=== PATIENT | male | born 1980 | race Caucasian/White ===

== ENCOUNTER → 2021-07-29 07:54 | Outpatient (CLI) | payer OTHER, SELFPAY ==
--- NOTE | 2021-07-29 07:57 | DI.ECHO.S_ITS ---
[facility]---------+ [facility] +---------+ : : [address] [place] : : : : [id number] : : : : Phone: [phone]+ Echocardiogram Report + + :Name: PINO CAMPBELL Study Date: 07/29/2021 Height: 67 in : :[facility] ReadingLocation: Weight: 200 lb : : Gender: Male BSA: 2.0 m2 : :: 1980 Age: 40 yrs BP: 105/65 mmHg: :Reason For Study: ABNL EKG : : Performed By: Gabriel Howard : :Referring: PARKER DUNN : + + Interpretation Summary The ejection fraction is estimated to be 55-60%. There is no significant valvular heart disease. Procedure: A two-dimensional transthoracic echocardiogram with color flow and Doppler was performed. The study quality was technically good. There is no prior echocardiogram noted for this patient. The patient was in normal sinus rhythm during the exam. Left Ventricle: The left ventricle is normal in size. There is normal left ventricular wall thickness. The ejection fraction is estimated to be 55-60%. There are no focal wall motion abnormalities. Diastolic parameters suggest probable normal left ventricular diastolic function and normal filling pressures. Right Ventricle: The right ventricle is normal in size and function. Atria: Both atria are normal in size. There is no Doppler evidence for an atrial septal defect. Mitral Valve: The mitral valve is normal in structure and function. There is trace mitral regurgitation. Aortic Valve: The aortic valve is trileaflet. The aortic valve opens well. No aortic regurgitation is present. Tricuspid Valve: The tricuspid valve is normal in structure and function. There is trace tricuspid regurgitation. The right ventricular systolic pressure is estimated to be at least 21 mmHg based on an estimated right atrial pressure of 3 mm Hg. Pulmonic Valve: The pulmonic valve is normal in structure and function. There is trace pulmonic regurgitation. Great Vessels: The aortic root is normal size. The dimensions of the ascending aorta are normal. The pulmonary artery is normal size. The IVC is of normal diameter and collapses greater than 50% with a sniff. This suggests a low right atrial pressure of 3 mm Hg. Pericardium/ Pleura There is no pericardial effusion. There is no pleural effusion. MMode/2D Measurements & Calculations LVIDd: 4.5 cm LVOT diam: 2.1 cm LVIDs: 3.1 cm Ao root diam: 2.8 cm FS: 31.6 % asc Aorta Diam: 2.9 cm EPSS: 0.26 cm Ao Arch Diam (Prox Trans): 2.2 cm IVSd: 0.69 cm LVPWd: 0.83 cm LV craft. diameter/BSA (cm/m^2): 2.2 LV sys. diameter/BSA (cm/m^2): 1.5 LA dimension: 3.4 cm RA long axis: 4.3 cm LA A2 area: 18.7 cm2 RA area: 13.0 cm2 LA A4 area: 16.9 cm2 RA vol: 33.1 ml LA length (vol): 5.2 cm RA : 16.4 ml/m2 LA vol: 51.9 ml IVC diam: 1.4 cm LA vol index: 25.7 ml/m2 TAPSE: 1.7 cm Doppler Measurements & Calculations Ao V2 max: 149.2 cm/sec LVOT Max Teo: 108.2 cm/sec Ao V2 mean: 117.3 cm/sec LV V1 max P.7 mmHg Ao max P.9 mmHg LV V1 VTI: 24.3 cm Ao mean P.8 mmHg DENISE(I,D): 2.5 cm2 Ao V2 VTI: 32.6 cm DENISE(V,D): 2.4 cm2 sev ratio: 0.75 DENISE indexed to BSA (cm^2/m^2): 1.2 MV E max teo: 80.5 cm/sec TR max teo: 210.6 cm/sec MV A max teo: 59.2 cm/sec TR max P.7 mmHg MV E/A: 1.4 PA V2 max: 94.6 cm/sec Med Peak E' Teo: 9.4 cm/sec PA V2 mean: 73.1 cm/sec E/E' med: 8.6 PA mean P.3 mmHg Lat Peak E' Teo: 13.8 cm/sec PA pr(Accel): 22.5 mmHg E/E' lat: 5.9 E/e' average: 7.2 MV dec time: 0.18 sec SV(LVOT): 82.2 ml Reading Physician:03:27 PM
== END ==
DX: R94.31 Abnormal electrocardiogram [ECG] [EKG] (principal)
CPT/HCPCS: 93306

== ENCOUNTER 2021-10-24 16:45 | Outpatient (RCR) | payer OTHER, SELFPAY ==
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
--- NOTE | 2021-04-11 15:32 | PT-OP ANOTE ---
pt called in and cancelled appt d/t working overtime.
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
--- NOTE | 2021-06-23 16:28 | PT.OPPOC ---
Physical, Occupational & Speech Therapy At [facility] Current Diagnoses Other fracture of left lower leg, initial encounter for closed fracture (06/23/21) Encounter for other orthopedic aftercare (06/23/21) Visit Care Team Role Provider Type Zacarias Sierra MD Attending Provider Non-Staff Primary Care Provider Referring Provider Specialty: Orthopedic Surgery Address: [address] [place] [address], [id number] Email: Plan Of Care PT-OP-T Assessment and Plan Start: 04/04/21 11:43 Freq: Status: Active Protocol: Document 06/23/21 15:16 HH (Rec: 06/23/21 16:28 HH [id number]) Physical Therapy Assessment Goals balance Impairment unable to WB on LLE now Short Term Goal (STG) 06/23 goal met pt is able to complete SLS > 10s STG Duration 5 weeks Half-Way Goal (LTG) 06/23 pain increased after 10s pt will be able to complete SLS >20 s to improve his overall single leg stability LTG Duration 10 weeks gait Impairment pt is on walking boot and mobilize with knee scooter Short Term Goal (STG) 06/23 goal met, pt is able to walk without AD at this point. gait is close to WNL. pt will be able to amb with a cane/ LAD at home and community with pain no more than 3/10 STG Duration 5 weeks Relocation Director Goal (LTG) pt will show normalized gait without compensation and able to begin jogging without increase discomfort >3/10 LTG Duration 10 weeks FAAM Impairment pt scores 8 on FAAM Short Term Goal (STG) 06/23 pt scores 29 on FAAM pt will score >40 on FAAM to show improved ankle mobility, stability, strength and balance STG Duration 5 weeks Relocation Director Goal (LTG) pt will score >60 on FAAM to show improved ankle mobility, stability, strength and balance LTG Duration 10 weeks LEFS Impairment pt scores 16 on LEFS Short Term Goal (STG) 06/23 pt scores 22 on LEFS. pt will score >40 on LEFS to show improved mobility and strength STG Duration 5 weeks Half-Way Goal (LTG) pt will score >60 on LEFS to show improved mobility and strength LTG Duration 10 weeks Progress Towards Goals Progress Towards Goals Progressing Toward Goals Assessment Summary Assessment Reassessment today and Antoine shows improved ankle ROM and strength since his walking boot removed a month ago. He is able to perform bilateral heel raise and stand on one leg. His gait is also improving with better push off during preswing. However, His PF lacks of approx 20 degrees compared to right. Pt also has a new onset of L LBP and indicates lumbar radiculopathy . This possibly impede his rehab progress. 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 Physical Therapy Plan Frequency and Duration Frequency of Treatment 2x/Week Duration of Treatment 10 weeks Plan of Care Start Date 06/23/21 Plan of Care End Date 09/06/21 Therapeutic Interventions Therapeutic Interventions Aquatic Therapy,Balance Training,Gait Training,Home Exercise Program,Joint Mobilizations,Manual Therapy, Neuromuscular Re-education, Patient/Caregiver Education, Self-Care/Home Management,Soft Tissue Mobilization,Taping, Therapeutic Activities, Therapeutic Exercises Modalities Cold Pack/Ice Massage,Electric Stimulation,Hot Packs, Infrared Therapy,Ultrasound Next Visit Focus/Plan Next Note Type Treatment Note Next Visit Plan Assess SLS, star glides, toe off increasing stance time on LLE during gait. POC: Assess response to HEP review: gait training, AROM BAPS #4 and intrinic isometric in standing. Plan of Care Dates Plan of Care Start Date 06/23/21 Plan of Care End Date 09/06/21 Electronically Signed by: Juliane Roberts PT 06/23/21 3224 Please Sign and Return: I have reviewed this Plan of Care and certify that the skilled therapy services above are required to meet the patient?s needs. Physician Signature Date Printed Name and Credentials Clinical Instructor Signature Printed Name and Credentials
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
--- NOTE | 2021-09-07 11:25 | PT.OPPOC ---
Physical, Occupational & Speech Therapy At [facility] Current Diagnoses Other fracture of left lower leg, initial encounter for closed fracture (09/07/21) Encounter for other orthopedic aftercare (09/07/21) Visit Care Team Role Provider Type Zacarias Sierra MD Attending Provider Non-Staff Primary Care Provider Referring Provider Specialty: Orthopedic Surgery Address: [address] [place] [address], [id number] Email: Plan Of Care PT-OP-T Assessment and Plan Start: 04/04/21 11:43 Freq: Status: Active Protocol: Document 09/07/21 08:10 (Rec: 09/07/21 11:25 [id number]) Physical Therapy Assessment Goals balance Impairment unable to WB on LLE now Short Term Goal (STG) 06/23 goal met pt is able to complete SLS > 10s STG Duration 5 weeks Prison Goal (LTG) 06/23 pain increased after 10s 09/07 pt will be able to complete SLS >20 s to improve his overall single leg stability LTG Duration 10 weeks gait Impairment pt is on walking boot and mobilize with knee scooter Short Term Goal (STG) 06/23 goal met, pt is able to walk without AD at this point. gait is close to WNL. pt will be able to amb with a cane/ LAD at home and community with pain no more than 3/10 STG Duration 5 weeks Prison Goal (LTG) 09/07 pt's gait = WFL but with slight lateral foot whip during swing phase. He started doing mild pylometric but not full jogging yet. pt will show normalized gait without compensation and able to begin jogging without increase discomfort >3/10 LTG Duration 10 weeks FAAM Impairment pt scores 8 on FAAM Short Term Goal (STG) 06/23 pt scores 29 on FAAM pt will score >40 on FAAM to show improved ankle mobility, stability, strength and balance STG Duration 5 weeks Prison Goal (LTG) 09/07 pt scores 46 today. pt will score >60 on FAAM to show improved ankle mobility, stability, strength and balance LTG Duration 10 weeks LEFS Impairment pt scores 16 on LEFS Short Term Goal (STG) 06/23 pt scores 22 on LEFS. pt will score >40 on LEFS to show improved mobility and strength STG Duration 5 weeks Commissioning Editor Goal (LTG) 09/07 pt scores 46 since he is unable to participate recreational activities such as running yet. pt will score >60 on LEFS to show improved mobility and strength LTG Duration 10 weeks Assessment Summary Assessment Reassessment today. Pt overall shows close to WFL ankle ROM and strength in open chain position. He still has difficulty tolerating in prolonged WB positions/ high impact activities possible d/t bone healing perspective. Pt felt better after navicular joint mob during DF/WB . Physical Therapy Plan Frequency and Duration Frequency of Treatment 1-2x/wk Duration of Treatment 6 weeks Plan of Care Start Date 09/07/21 Plan of Care End Date 10/22/21 Therapeutic Interventions Therapeutic Interventions Aquatic Therapy,Balance Training,Gait Training,Home Exercise Program,Joint Mobilizations,Manual Therapy, Neuromuscular Re-education, Patient/Caregiver Education, Self-Care/Home Management,Soft Tissue Mobilization,Taping, Therapeutic Activities, Therapeutic Exercises Modalities Cold Pack/Ice Massage,Electric Stimulation,Hot Packs, Infrared Therapy,Ultrasound Next Visit Focus/Plan Next Note Type Treatment Note Next Visit Plan Assess SLS, star glides, toe off increasing stance time on LLE during gait. POC: Assess response to HEP review: gait training, AROM BAPS #4 and intrinic isometric in standing. Plan of Care Dates Plan of Care Start Date 09/07/21 Plan of Care End Date 10/22/21 Electronically Signed by: Juliane Roberts, PT 09/07/21 [id number] Please Sign and Return: I have reviewed this Plan of Care and certify that the skilled therapy services above are required to meet the patient?s needs. Physician Signature Date Printed Name and Credentials Clinical Instructor Signature Printed Name and Credentials
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
--- NOTE | 2021-10-17 16:59 | PT.OPPOC ---
Physical, Occupational & Speech Therapy At [facility] Current Diagnoses Other fracture of left lower leg, initial encounter for closed fracture (10/17/21) Encounter for other orthopedic aftercare (10/17/21) Visit Care Team Role Provider Type Zacarias Sierra MD Attending Provider Non-Staff Primary Care Provider Referring Provider Specialty: Orthopedic Surgery Address: [address] [place] [address], [id number] Email: Plan Of Care PT-OP-T Assessment and Plan Start: 04/04/21 11:43 Freq: Status: Active Protocol: Document 10/17/21 16:01 DCW (Rec: 10/17/21 16:58 DCW [id number]) Physical Therapy Assessment Goals balance Impairment unable to WB on LLE now Short Term Goal (STG) 06/23 goal met pt is able to complete SLS > 10s STG Duration Met Registered Nurses Goal (LTG) 09/07 pt will be able to complete SLS >20 s to improve his overall single leg stability LTG Duration Met gait Impairment pt is on walking boot and mobilize with knee scooter Short Term Goal (STG) pt will be able to amb with a cane/ LAD at home and community with pain no more than 3/10 STG Duration Met Registered Nurses Goal (LTG) 09/07 pt's gait = WFL but with slight lateral foot whip during swing phase. He started doing mild pylometric but not full jogging yet. pt will show normalized gait without compensation and able to begin jogging without increase discomfort >3/10 LTG Duration 12/15/21 FAAM Impairment pt scores 8 on FAAM Usp Goal (LTG) 09/07 pt scores 46 today. pt will score >60 on FAAM to show improved ankle mobility, stability, strength and balance LTG Duration 12/15/21 LEFS Impairment pt scores 16 on LEFS Impairment 09/07/21 pt scores 46 since he is unable to participate recreational activities such as running yet. Usp Goal (LTG) pt will score >60 on LEFS to show improved mobility and strength LTG Duration 12/15/21 Assessment Summary Assessment Pt continues to feel like he has plateaued, does demonstrate some improved ROM, but feels like he hits a hard stop limiting his dorsiflexion. Additionally, pt seems to be showing signs of posterior tib tendonitis along the posterior aspect of his medial malleolus. Discussed pt talking with base ortho surgeon about continued pain levels. Physical Therapy Plan Frequency and Duration Frequency of Treatment 1-2x/wk Duration of Treatment 2 months Plan of Care Start Date 10/17/21 Plan of Care End Date 12/15/21 Therapeutic Interventions Therapeutic Interventions Aquatic Therapy,Balance Training,Gait Training,Home Exercise Program,Joint Mobilizations,Manual Therapy, Neuromuscular Re-education, Patient/Caregiver Education, Self-Care/Home Management,Soft Tissue Mobilization,Taping, Therapeutic Activities, Therapeutic Exercises Modalities Cold Pack/Ice Massage,Electric Stimulation,Hot Packs, Infrared Therapy,Ultrasound Next Visit Focus/Plan Next Note Type Treatment Note Next Visit Plan cont start with bike then eliptical dynamic balance activities, pylometric if tolerated by monitoring WB tolerance. Plan of Care Dates Plan of Care Start Date 10/17/21 Plan of Care End Date 12/15/21 Electronically Signed by: Malcom Elmore, PT 10/17/21 1090 Please Sign and Return: I have reviewed this Plan of Care and certify that the skilled therapy services above are required to meet the patient?s needs. Physician Signature Date Printed Name and Credentials Clinical Instructor Signature Printed Name and Credentials
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
== END 2021-12-19 10:08 ==
LOC: PHYS 16:45
PROVIDERS: PCP Orthopaedic Surgery; Referring Provider Orthopaedic Surgery; Visit Provider Orthopaedic Surgery
DX: S82.892A Other fracture of left lower leg, initial encounter for closed fracture (principal); Z47.89 Encounter for other orthopedic aftercare
CPT/HCPCS: 95851; 97110; 97112; 97116; 97140; 97161; 97530; 97535

== ENCOUNTER → 2023-02-09 12:47 | Outpatient (CLI) | payer OTHER, SELFPAY ==
--- NOTE | 2023-02-09 | DI.MRI.S_ITS ---
PROCEDURE: MR ANKLE LT WO CON INDICATIONS: PAIN IN LEFT ANKLE TECHNIQUE: Noncontrast sagittal T1 spin echo and T2 fast spin echo with fat saturation, axial proton density fast spin echo and T2 fast spin echo with fat saturation, coronal T1 spin echo and T2 fast spin echo with fat saturation through the ankle/hindfoot. COMPARISON: None. FINDINGS: Image quality: Excellent. Bones and joints: Post ORIF changes are seen in distal tibial shaft and distal fibular shaft with susceptibility artifacts. No gross marrow edema. No acute fracture or dislocation. Tiny osteochondral injuries are noted involving medial weight-bearing portion of talar dome and adjacent distal tibial plafond and measures up to 5 millimeter in size. Small amount of tibiotalar joint effusion is seen, no gross loose bodies. Medial structures: The posterior tibialis tendon is thickened at the level of talonavicular joint. The flexor digitorum longus, and flexor hallucis longus tendons are intact. The posterior tibial neurovascular bundle appears normal within the tarsal tunnel, without extrinsic mass effect. The deltoid ligament and spring ligament are thickened. Lateral structures: The anterior talofibular, calcaneofibular, and posterior talofibular ligaments appear thickened. More superiorly, the anterior and posterior tibiofibular ligaments appear intact, as is the intermalleolar ligament. The tibiofibular syndesmosis is normal in width at 2 mm or less. The peroneus longus and brevis tendons demonstrate normal location and morphology. Adjacent bony peroneal tubercle and retrotrochlear prominence are normal in size. The sinus tarsi demonstrates normal fatty signal, without edema, fibrosis, or cyst formation. Visualized sinus tarsi components (cervical ligament, interosseous talocalcaneal ligament, roots of the inferior extensor retinaculum) appear normal. The calcaneonavicular and calcaneocuboid components of the bifurcate ligament appear intact. The dorsal calcaneocuboid ligament appears intact. Anterior structures: The tibialis anterior, extensor hallucis longus, and extensor digitorum longus tendons appear intact. The dorsal talonavicular ligament appears intact. Posterior and plantar structures: Achilles tendon is intact. Medial and lateral bands of the plantar fascia are of normal thickness. No abductor digiti quinti muscle atrophy to suggest Lindsey neuropathy. IMPRESSION: 1. Postsurgical changes are noted in distal tibial and fibular shaft with susceptibility artifacts. No gross marrow edema. No acute fracture or dislocation. Mild osteoarthritic changes are noted in tibiotalar joint with small osteochondral injuries as above. Small amount of joint effusion, no loose bodies. 2. Tendinosis involving posterior tibialis tendon at the level of talonavicular joint. Rest of the ankle tendons are grossly intact. 3. Low to moderate grade medial ankle ligament sprain. Low-grade lateral ankle ligament sprain. No full-thickness ankle rupture. Dictated by: Alejo Welsh M.D. on 02/09/2023 at 15:53 Approved by: Alejo Welsh M.D. on 02/09/2023 at 16:07
--- NOTE | 2023-02-09 | DI.RAD.S_ITS ---
PROCEDURE: FL SHOULDER INJECTION MR/CT RT INDICATIONS: PAIN IN RT SHOULDER COMPARISON: None. TECHNIQUE: The indications, alternatives, benefits, risks, and complications of the procedure were explained to the patient. Written informed consent was obtained and placed in the chart. The shoulder was examined fluoroscopically and a site for needle placement chosen for entry into the glenohumeral joint from an anterior approach. The skin was prepped and draped in a sterile fashion, and 1% lidocaine infiltrated from skin down to joint capsule. A spinal needle was inserted into the glenohumeral joint, and a small amount of iodinated contrast media injected to confirm intra-articular placement of the needle tip. This was followed by approximately 12 mL dilute solution of a gadolinium containing MR contrast agent. The needle was removed and a dressing was applied. The patient was given postprocedural instructions and sent to the MR suite for MR imaging. FINDINGS: A single fluoroscopic spot image demonstrates intra-articular location of injected iodinated contrast. IMPRESSION: Successful fluoroscopically guided administration of dilute Gadolinium solution into the shoulder joint for MR arthrogram. Dictated by: Jesse Rothman M.D. on 02/09/2023 at 15:17 Approved by: Jesse Rothman M.D. on 02/09/2023 at 15:18
--- NOTE | 2023-02-09 | DI.MRI.S_ITS ---
PROCEDURE: MR SHOULDER RT W CON INDICATIONS: PAIN IN RT SHOULDER TECHNIQUE: After the administration of 12 mL of dilute intra-articular Gadolinium contrast, oblique coronal T1 and T2 spin echo with fat saturation, oblique sagittal T1 spin echo with and without fat saturation, oblique sagittal T2 fast spin echo with fat saturation, axial T1 spin echo with fat saturation through the shoulder. COMPARISON: None. FINDINGS: Image quality: Excellent. Rotator cuff: The supraspinatus, infraspinatus, and subscapularis tendons appear intact throughout. No rotator cuff muscle atrophy on sagittal images. Bones and bursae: No bone marrow contusions or fractures. Moderate acromioclavicular joint degeneration. The acromion demonstrates conventional anatomy, without an os acromiale. Capsule and soft tissues: The labrum and glenohumeral ligaments appear intact. The long head of the biceps tendon demonstrates normal location and morphology. The rotator interval appears normal, without fibrosis. The coracohumeral ligament is of normal thickness. No intra-articular bodies. IMPRESSION: 1. No rotator cuff tear. 2. Acromioclavicular joint osteoarthritis. Dictated by: Liz Cochran M.D. on 02/09/2023 at 14:47 Transcribed by: BERNY on 02/09/2023 at 14:48 Approved by: Liz Cochran M.D. on 02/09/2023 at 16:22
== END ==
PROVIDERS: Referring Provider Orthopaedic Surgery; Visit Provider Orthopaedic Surgery
DX: S93.492A Sprain of other ligament of left ankle, initial encounter (principal); M19.011 Primary osteoarthritis, right shoulder; M25.572 Pain in left ankle and joints of left foot; M25.511 Pain in right shoulder; M25.472 Effusion, left ankle
CPT/HCPCS: 23350; 73222; 73721; 77002

== ENCOUNTER → 2023-06-19 09:23 | Outpatient (CLI) | payer OTHER, SELFPAY ==
[2023-06-19 10:04] LABS: Semen Sperm Prescence Post-Vas Absent (ABSENT)
== END ==
PROVIDERS: Referring Provider Specialist; Visit Provider Specialist
DX: Z98.52 Vasectomy status (principal)
CPT/HCPCS: 89321

== ENCOUNTER 2024-01-30 11:30 | Day surgery (SDC) | payer OTHER, SELFPAY ==
[2024-01-21 14:16] VITALS: BMI 32.1
[2024-01-30] VITALS (14 sets, daily range): BP systolic 108–133; BP diastolic 75–84; PULSE 77–91; RESP 15–16; TEMP 36.4–37.1; O2SAT 93–98; BMI 32.6
[2024-01-30] MEDS: LACTATED RINGERS 1,000 ML 42 ML IV (12:13)
--- NOTE | 2024-01-30 12:54 | PM.PREOP ---
Pre-operative Note Interval Note History & Physical reviewed/Exam performed by Physician: Yes Changes to H&P: No H&P completed within 30 days and has changed as indicated here:: Patient also states that he would like his peroneal tendons explored they are snapping more now. No katia dislocation but constant sub sheath snapping.
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
[2024-01-30] MEDS: CEFAZOLIN 2 GM/100 ML PREMIX 100 ML IV (13:35)
--- NOTE | 2024-01-30 13:58 | SUR.OPER ---
Supine on padded OR bed, head on pillow, arms secured on padded arm boards at <90 degrees abduction, legs uncrossed, safety belt at thigh, tape over blanket over NON OP LEG. operative leg resting on well leg walden with gel pad and draped free. lateral post on operative side
[2024-01-30] MEDS: BUPIVACAINE 0.25% (PF) 30 ML, EPINEPHrine 0.15 MG INJ (14:05)
[2024-01-30] MEDS: ACETAMINOPHEN IV 1,000 MG/100 ML VIAL 400 MG IV (15:49)
[2024-01-30] MEDS: HYDROMORPHONE 1 MG INJ IV ×2 (15:49→16:03)
[2024-01-30] MEDS: hydrOXYzine 50 MG/ML INJ 25 MG IM (15:50)
[2024-01-30] MEDS: OXYCODONE IR 5 MG TABLET PO ×2 (15:51→16:23)
== END 2024-01-30 17:25 | disposition home or self-care (01) ==
PROVIDERS: Referring Provider Orthopaedic Surgery Foot and Ankle Surgery; Visit Provider Orthopaedic Surgery Foot and Ankle Surgery
PROC: (CPT 29898; principal; 2024-01-30 12:45)
PROC: (CPT 29898; 2024-01-30 12:45)
DX: M25.872 Other specified joint disorders, left ankle and foot (principal); M25.572 Pain in left ankle and joints of left foot
CPT/HCPCS: 29898; 20680 ×2; J0136; J0171; J0690; J1170; J1885; J2405; J2704; J3010; J3410

== ENCOUNTER → 2024-06-30 16:21 | Outpatient (CLI) | payer OTHER, SELFPAY ==
--- NOTE | 2024-06-30 16:23 | DI.MRI.S_ITS ---
PROCEDURE: MR ANKLE LT WO CON INDICATIONS: pain in left foot and ankle TECHNIQUE: Noncontrast sagittal T1 spin echo and T2 fast spin echo with fat saturation, axial proton density fast spin echo and T2 fast spin echo with fat saturation, coronal T1 spin echo and T2 fast spin echo with fat saturation through the ankle/hindfoot. COMPARISON: [facility], MR, MR ANKLE LT WO CON, 02/09/2023, 13:44. FINDINGS: Image quality: Excellent. There are metallic susceptibility artifacts related to prior surgery and metallic ORIF hardware. Bones and joints: Post ORIF changes are noted in the medial malleolus, distal tibial shaft and distal fibular shaft, unchanged with metallic susceptibility artifacts. There has been interval progression of osteochondral defects with irregularity and bone edema in the medial weight-bearing portion of the talar dome and adjacent distal tibial plafond now measuring up to 1.2 cm previously 5 mm. Mild tibiotalar joint effusion similar to the prior exam. Medial structures: Similar to the prior exam posterior tibialis tendon is mildly thickened at the level of the talonavicular joint without significant increased internal signal but with surrounding mild fluid possible mild tenosynovitis. The flexor digitorum longus, and flexor hallucis longus tendons are intact. There is increased T2 weighted signal in the posterior more than anterior tibiotalar ligaments, increased or new compared to the prior exam. The posterior tibial neurovascular bundle appears normal within the tarsal tunnel. Progressed increased T2 weighted signal with some disruption of fibers in the superficial layer (tibionavicular, and tibiocalcaneal ligaments) of the deltoid ligament. The spring ligament components (superomedial calcaneonavicular, medioplantar oblique calcaneonavicular, and inferoplantar longitudinal ligaments) are intact. Lateral structures: New thickening and increased T2 weighted signal of the anterior and posterior talofibular ligaments without full-thickness tear. The calcaneofibular, ligaments appear intact. More superiorly, the anterior and posterior tibiofibular ligaments are not well visualized due to artifacts without gross abnormality. The tibiofibular syndesmosis is normal in width at 2 mm or less. New mild thickening and increased T2 weighted signal within and surrounding the distal muscle body of the peroneus longus and brevis in to the proximal tendons. Adjacent bony peroneal tubercle and retrotrochlear prominence are normal in size. The calcaneonavicular and calcaneocuboid components of the bifurcate ligament appear intact. The dorsal calcaneocuboid ligament appears intact. Anterior structures: New abnormal signal within the extensor digitorum muscle and tendons and to a lesser degree peroneus tertius tendon. The tibialis anterior, extensor hallucis longus, tendons appear intact. Posterior and plantar structures: Increased 7 mm previously 2 mm low cyst posterior aspect of the calcaneus adjacent to the Achilles tendon insertion. Achilles tendon is intact without abnormal thickening or signal. Medial and lateral bands of the plantar fascia are of normal thickness. IMPRESSION: Post ORIF changes. 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 Mild tibiotalar joint effusion similar to the prior exam. Similar to the prior exam posterior tibialis tendon is mildly thickened with surrounding mild fluid possible mild tenosynovitis. Increased T2 weighted signal in the tibiotalar ligaments, increased or new compared to the prior exam. Progressed increased signal with some disruption of fibers in the tibionavicular, and tibiocalcaneal ligaments. New thickening and increased T2 weighted signal of the anterior and posterior talofibular ligaments. New mild thickening and increased signal within and surrounding the distal muscle body of the peroneus longus and brevis in to the proximal tendons. New abnormal signal within the extensor digitorum muscle and tendons and to a lesser degree peroneus tertius tendon. Increased 7 mm cyst posterior aspect of the calcaneus. Continued follow-up is needed. Dictated by: Myron Caputo M.D. on 07/02/2024 at 10:03 Approved by: Myron Caputo M.D. on 07/02/2024 at 10:46
== END ==
LOC: MRI 16:22
PROVIDERS: Family Provider General Practice; Referring Provider Orthopaedic Surgery Foot and Ankle Surgery; Visit Provider Orthopaedic Surgery Foot and Ankle Surgery
DX: M21.6X2 Other acquired deformities of left foot (principal); M25.872 Other specified joint disorders, left ankle and foot; M25.572 Pain in left ankle and joints of left foot; M25.472 Effusion, left ankle; Z98.890 Other specified postprocedural states
CPT/HCPCS: 73721

== ENCOUNTER 2024-07-10 16:45 | Outpatient (RCR) | payer OTHER, SELFPAY ==
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
== END 2024-12-09 14:41 | disposition home or self-care (01) ==
LOC: PHYS 16:45
PROVIDERS: Family Provider General Practice; Referring Provider General Practice; Visit Provider General Practice
DX: M25.572 Pain in left ankle and joints of left foot (principal); M25.672 Stiffness of left ankle, not elsewhere classified
CPT/HCPCS: 97110; 97140; 97162